=== PATIENT | female | born 1950 | race Native Hawaiian/Other Pacific Islander ===

== ENCOUNTER 2018-07-31 16:30 | Emergency (ER) | payer OTHER ==
[~2018-07-31] VITALS: Ht 160 cm; Wt 83.5 kg
[~2018-07-31 16:30] MED LIST: BENADRYL A12.5 MG/5 PO; BISA10SU8 RE; CETI10TA PO; CLARITIN10 M1 PO; DIPH25CA90 PO; DONE5TAB PO; DULCOLAX5 MG PO; DULO60CA2 PO; HYDR5TAB9 PO; LEVO0.1519 PO; LIPITOR10 MG PO; MELATONIN3 M2 PO; MELATONIN3 MG PO; MEMA5TAB PO; MOBIC15 MG PO; MULTI VITAMIN A1 TAB PO; POTA20TA4 PO; PROM25IN5 INJ; QUET100T2 PO; QUET25TA2 PO; ROBAFEN100 MG/5 M PO; SEROQUEL25 MG PO; TEGRETOL200 MG PO; TOPAMAX50 MG PO; VITAMIN B-121000 MC2 PO
[2018-07-31 16:59] LABS: PLATELET COUNT 143 K/uL (152-353)
[2018-07-31 17:08] LABS: POTASSIUM 4.3 mmol/L (3.6-5.2)
[2018-07-31 18:45] VITALS: BP 110/76; TEMP 98
[2018-07-31] MEDS ORDERED: UNITH DIRECT150 MCG PO (20:19)
[2018-07-31] MEDS ORDERED: MONT10TA PO (20:20)
[2018-07-31] MEDS ORDERED: VITAMIN B-12500 MCG PO (20:24)
[2018-07-31] MEDS ORDERED: CARBAMAZEPIN200 M1 PO ×2 (20:35→20:39)
[2018-07-31] MEDS ORDERED: [UNRECOGNIZED DRUG - OTHER] PO (20:38)
[2018-07-31] MEDS ORDERED: LIPITOR10 MG PO (20:43)
[2018-07-31] MEDS ORDERED: MELADOX3 MG PO (20:47)
[2018-07-31] MEDS ORDERED: CLARITIN10 MG PO (21:01)
== END 2018-07-31 19:07 | disposition other institution (70) ==
LOC: ED 16:31
PROVIDERS: Emergency Medicine
DX: F32.89 Other specified depressive episodes (principal); F28 Other psychotic disorder not due to a substance or known physiological condition
CPT/HCPCS: 36415; 80053; 81000; 85027; 93005; 99285